=== PATIENT | female | born 1965 | race Caucasian/White ===

== ENCOUNTER 2019-01-20 22:33 | Emergency (ER) | payer BC, SELFPAY ==
[2019-01-20 22:34] VITALS: BP 137/67; PULSE 100; RESP 16; TEMP 37; O2SAT 100; BMI 22.8
--- NOTE | 2019-01-20 22:50 | ED.VISSUMM ---
- ER Visit Summary Date of Service: 01/20/19 Chief Complaint: Spider bite History of Present Illness: The patient is a 53 F who presents for complaint of a spider bite on her right flank. Patient states 3 days ago she was flying and got bitten while on the flight. At that time she also developed sweats, generalized body aches and headache. [facility] and started on Bactrim for the bite. They outlined it and told her if he goes outside the lines she should seek further medical care. Patient states the bite has been itchy and painful but not so much today. She continues to have sweats, myalgias and a headache. She states she was told to take 800 mg of ibuprofen every 4 hours, and she took 24 ibuprofen in the last 24 hours. She denies sore throat, rhinorrhea, cough, shortness of breath, chest pain, abdominal pain, nausea or vomiting, diarrhea. Denies any medical complaints. Physical Examination: Vital signs: afebrile, hemodynamically stable, no hypoxia on room air General: well nourished, well developed, in no distress Skin: warm, dry, no pallor, 8 cm x 3 cm ovoid area of erythema with central ovoid shaped nodule consistent with an arthropod bite. The erythema is becoming less dense towards the edges and is approximately 0.5 cm outside the margin of the marking from yesterday, no purulent drainage, no fluctuance, no induration HEENT: normocephalic and atraumatic; PERRL, EOMI, moist mucous membranes Cardiovascular: regular rate and rhythm without murmurs, no peripheral edema, 2+ pulses all distal extremities Respiratory: No increased work of breathing, lungs are clear to auscultation bilaterally, no rales, rhonchi or wheezing Abdominal: Abdomen is soft, nontender with normoactive bowel sounds, no guarding or rebound, no masses MSK: Moves all extremities, no deformities, normal strength calves are soft, nontender, symmetric, no swelling Neuro: Awake and alert, oriented ?4. No facial droop, sensation and motor function intact and symmetric Test Results: Abnormal Lab Results 01/20/19 22:59 Sodium 134 L Potassium 3.6 Chloride 108 H Carbon Dioxide 21.0 Anion Gap 5 BUN 15 Creatinine 1.12 H Estim Creat Clear Calc 55.84 Est GFR (MDRD) Af Amer 65 Est GFR (MDRD) Non-Af 54 L BUN/Creatinine Ratio 13.4 Glucose 114 H Calcium 8.5 Medications Given Sodium Chloride () 1,000 mls @ 999 mls/hr IV .Q1H1M ONE Stop: 01/20/19 23:49 Last Admin: 01/20/19 23:01 Dose: 999 mls/hr Discontinued Medications Acetaminophen (Tylenol) 1,000 mg PO X1 ONE Stop: 01/20/19 22:50 Last Admin: 01/20/19 23:01 Dose: 1,000 mg Emergency Department Course and Treatment: Patient is taken 4800 mg of ibuprofen in the last 24 hours. Patient was given fluids and lab work was checked to assess her renal function. Patient was given Tylenol for her myalgias and headache. Discussed with the patient that her lesion on her right side looks like an arthropod bite of some sort and that it appears to be running through the natural progression of healing. It does not appear cellulitic or like an abscess. Patient wanted to know why she felt ill in general, with symptom onset at the same time with the bite, and we discussed that she has been traveling and has been exposed to multiple people and any illnesses they might have had in the small enclosed space of the airplanes. Patient was well-appearing at time of discharge. She still felt achy and fatigued but is not ill-appearing, is hemodynamically stable, afebrile, and at this time there is no indication for further testing, medications or admission. Patient is advised to follow-up with her primary care doctor, first for continuity of care instead of seeing different providers, and also for follow-up of her current complaints. Patient discharged home. Treatment Plan: [] Disposition: [] Impression: Flulike illness, arthropod bite to the right flank This note was generated with [employer] dictation software. It may contain incorrect words, spelling, and punctuation that were not noted in review of the chart prior to signing ED Disposition - Plan for ED Patient: Disposition: Home or Assisted Living Instructions: ED Bite Insect Referrals: NOT,DEFINED [NON-STAFF] - Doctor,Your [STAFF PHYSICIAN] - 1-2 Days if not improving Additional Instructions: Use Tylenol and/or ibuprofen as needed for aches, headache and fever. Do not take more than 3000 mg of Tylenol in 24 hours. Do not take more than 2400 mg of ibuprofen in 24 hours. It is okay to take these medications at the same time. Drink plenty of fluids to stay hydrated. Please follow-up with your doctor if you are not feeling better in 1 to 2 days. Return immediately to the emergency department if you develop any new or worsening symptoms.
[2019-01-20] MEDS: Acetaminophen 500 MG Tablet 1000 MG PO (23:01)
[2019-01-20] MEDS: 0.9% Normal Saline 1,000 ML 999 ML IV (23:01)
[2019-01-20 23:17] LABS: Anion Gap 5 (5-15); BUN 15 mg/dL (7-18); BUN/Creat Ratio 13.4 RATIO (10-20); Calcium,Total 8.5 mg/dL (8.5-10.1); Chloride 108 mmol/L (98-107); Creatinine, Serum 1.12 mg/dL (0.55-1.02); EST Glomerular Filtration Rate 54 mL/min (>60); Est Glom Filt Rate - Afr Amer 65 mL/min (>60); Estimated Creatinine Clearance 55.84 ml/min; Glucose 114 mg/dL (74-106); Potassium 3.6 mmol/L (3.5-5.1); Sodium Level 134 mmol/L (136-145)
[2019-01-21 00:04] VITALS: RESP 16
== END 2019-01-21 00:05 | disposition home or self-care (01) ==
PROVIDERS: Emergency Provider Emergency Medicine
DX: T63.301A Toxic effect of unspecified spider venom, accidental (unintentional), initial encounter (principal); M79.10 Myalgia, unspecified site; R51 Headache; R61 Generalized hyperhidrosis; Y92.9 Unspecified place or not applicable
CPT/HCPCS: 80048; 96360; 99284; J7030

== ENCOUNTER → 2023-04-22 | Outpatient (CLI) | payer BC, SELFPAY ==
--- NOTE | 2023-04-22 09:40 | RAD_ITS ---
STUDY: X-RAY - LEFT FOOT CLINICAL: Female, 57 years old. Left foot puncture wound TECHNIQUE: 3 view(s) of the foot. COMPARISON: None. FINDINGS: There is an enthesophyte involving the posterior superior calcaneus at the site of insertion of the Achilles tendon. Normal visualized subtalar, talonavicular, calcaneocuboid, tarsal and tarsometatarsal articulations. Normal metatarsi. Normal metatarsophalangeal joint of the great toe. Normal tibial and fibular sesamoid bones. Normal interphalangeal joint of the great toe. Normal phalanges of the great toe. Normal second through fifth metatarsophalangeal joints. Normal interphalangeal joints and phalanges of the lesser toes. The soft tissue structures are unremarkable. RAD/Foot min 3 Views IMPRESSION: No acute abnormality is seen. Electronically Signed: Darwin Barr MD at 10:05 EDT ,
== END | disposition home or self-care (01) ==
PROVIDERS: PCP Pediatrics; Visit Provider Physician Assistant Surgical
DX: S91.332A Puncture wound without foreign body, left foot, initial encounter (principal)
CPT/HCPCS: 73630